=== PATIENT | female | born 1935 | race Caucasian/White ===

== ENCOUNTER → 2016-07-26 | Outpatient (CLI) | payer OTHER ==
[~2016-07-26] MED LIST: ACET-1311 PO; ASPI81TA28 PO; CALC-20 PO; CHOL100027 PO; LSN/10125 PO; MULT-506 PO; PRINZIDE 10/12.5MG PO; SIMV40TA2 PO; WARF4TAB PO; WARF5TAB90 PO
[2016-07-26 15:52] LABS: BASO % 0.5 %; BASO ABS # 0.02 K/uL (0-0.2); COMPLETE YES; HEMATOCRIT 38.2 % (37-47); IG% 0.2 %; LYMPH % 39.6 %; LYMPH ABS # 1.62 K/uL (1.2-3.4); MEAN CORPUSCULAR HEMOGLOBIN 32.4 pg (25-34); MEAN CORPUSCULAR HGB CONC 32.7 g/dl (32-36); MEAN PLATELET VOLUME 9.4 fL (7.4-10.4); MONO % 8.1 %; NEUT % 50.6 %; PLATELET COUNT 228 K/uL (130-400); RED BLOOD COUNT 3.86 M/uL (4.2-5.4); WHITE BLOOD COUNT 4.09 K/uL (4.8-10.8)
[2016-07-26 16:13] LABS: ALT/SGPT 24 U/L (12-78); AST/SGOT 29 U/L (15-37); BLOOD UREA NITROGEN 17 mg/dl (7-18); BUN/CREATININE RATIO 18.8 (10-20); CARBON DIOXIDE 31 mmol/L (21-32); CHLORIDE 105 mmol/L (98-107); CHOLESTEROL 172 mg/dl (0-200); CREATININE 0.91 mg/dl (0.60-1.20); GLUCOSE 125 mg/dl (70-99); POTASSIUM 3.7 mmol/L (3.5-5.1); SODIUM 142 mmol/L (136-145)
[2016-07-26 16:23] LABS: ALB/GLOB RATIO 1.2 (0.9-2)
[2016-07-26 16:24] LABS: ALKALINE PHOSPHATASE 65 U/L (45-117); HDL CHOLESTEROL 57 mg/dl; LDL CHOLESTEROL CALCULATED 60 mg/dl; TRIGLYCERIDES 275 mg/dl (0-150); VERY LOW DENSITY LIPOPROT CALC 55 mg/dl
== END | disposition home or self-care (01) ==
LOC: C.LAB 14:36
PROVIDERS: ATTEND Internal Medicine Geriatric Medicine
DX: I10 Essential (primary) hypertension (principal); M19.90 Unspecified osteoarthritis, unspecified site; M81.0 Age-related osteoporosis without current pathological fracture; E78.5 Hyperlipidemia, unspecified; Z79.01 Long term (current) use of anticoagulants; E55.9 Vitamin D deficiency, unspecified; F32.9 Major depressive disorder, single episode, unspecified; M54.2 Cervicalgia; S52.90XA Unspecified fracture of unspecified forearm, initial encounter for closed fracture; X58.XXXA Exposure to other specified factors, initial encounter; Z51.81 Encounter for therapeutic drug level monitoring

== ENCOUNTER 2016-09-14 18:26 | Emergency (ER) | payer OTHER ==
[~2016-09-14] VITALS: Ht 160 cm; Wt 60.8 kg
[~2016-09-14 18:26] MED LIST changes: -ASPI81TA28 PO; -LSN/10125 PO
[2016-09-14 18:31] VITALS: Ht 160 cm; Wt 60.8 kg
[2016-09-14] MEDS ORDERED: ASPI81TA28 PO (19:05)
[2016-09-14] MEDS ORDERED: LSN/10125 PO (19:05)
--- NOTE | 2016-09-14 19:07 | DIAGNOSTIC IMAGING REPORT ---
CT SCAN OF THE BRAIN WITHOUT IV CONTRAST CLINICAL HISTORY: Fall. Head injury. COMPARISON STUDY: CT of the brain dated 01/10/2015. TECHNIQUE: Unenhanced axial CT scan of the brain is performed from the vertex to the skull base. CT DOSE: 638.56 mGycm FINDINGS: Brain parenchyma: There are age-related involutional changes noting mild subcortical and periventricular microangiopathic change. There is no hemorrhage, mass effect, or evidence of acute territorial ischemia by CT criteria. Gill-white matter is preserved. No extra-axial fluid collection is seen. Ventricles, sulci, cisterns: Prominent secondary to involutional change. Intracranial vasculature: There is atherosclerotic calcification of the cavernous carotid arteries. Calvarium: The skeletal structures are osteopenic. There is no depressed calvarial fracture. Sinuses and mastoids: Trace fluid is seen within the sphenoid sinuses. The remaining visualized paranasal sinuses are clear. The mastoid air cells are well pneumatized. Orbits: The bony orbits are grossly intact. IMPRESSION: There is no hemorrhage, mass effect, or evidence of acute territorial ischemia by CT criteria. Electronically signed by: Anthony Benoit M.D. 09/14/2016 7:06 PM Dictated Date/Time: 09/14/2016 7:04 PM
--- NOTE | 2016-09-14 19:12 | EMERGENCY ROOM VISIT NOTE ---
History First contact with patient: 18:34 Chief Complaint: FALL Stated Complaint: FELL & HIT HEAD History of Present Illness The patient is a 80 year old female who presents to the Emergency Room with complaints of falling and hitting her head. The patient states that she was out gardening one hour prior to arrival when she tripped over a plastic edging she has around her flower beds and fell forward striking her face and forehead on the ground. She states when she hit her head off the ground and now she has a slight headache at the base of her skull. The patient denies any loss of consciousness, visual changes, dizziness. The patient denies any neck or back pain. The patient denies any facial pain. The patient is currently on an aspirin daily. She was taken off Coumadin 2-3 weeks ago. She had a prior pulmonary embolus which is why she was on the Coumadin but was taken off and was told she did not need it any longer. Review of Systems 6 system review was performed and was negative unless stated otherwise in history of present illness. Past Medical/Surgical History Medical Problems: (1) DVT (deep venous thrombosis) (2) Dyslipidemia (3) HTN (hypertension) (4) Hypertension (5) Osteoarthritis (6) PE (pulmonary embolism) Surgical Problems: (1) History of knee replacement, total Family History Diabetes mellitus Social History Smoking Status: Never Smoker Drug Use: none Marital Status: Housing Status: lives with significant other Current/Historical Medications Scheduled Aspirin (Aspirin Ec), 81 MG PO DAILY Calcium Carbonate-Vitamin D (Calcium 600 + D), 1 TAB PO DAILY Cholecalciferol (Vitamin D 1000 Unit), 1,000 INTER.UNIT PO DAILY Hctz/Lisinopril (Lisinopril/Hctz 10/12.5 Mg), 1 TAB PO DAILY Multivitamin (Multivitamin), 1 TAB PO DAILY Simvastatin (Zocor), 40 MG PO DAILY Scheduled PRN Acetaminophen (Tylenol), 650 MG PO Q6 PRN for Pain Physical Exam Vital Signs Date Time Temp Pulse Resp B/P (MAP) Pulse Ox O2 Delivery O2 Flow Rate FiO2 09/14/16 18:31 36.6 73 20 144/79 96 Room Air Physical Exam GENERAL: 80-year-old white female appears in no acute distress. She appears younger than stated age. MENTAL Status: Alert and oriented 3. HEAD: No gross bony deformity noted. No lacerations noted. The patient is tender to palpation over the occipital region of the skull. Remainder of head is unremarkable. EYES: PERRLA. EOMs intact. FACE: No gross bony deformity noted. No ecchymosis, edema noted. Nontender to palpation throughout. NECK: Supple, no lymphadenopathy noted. No carotid bruits noted. LUNGS: Clear auscultation without wheezes rales or rhonchi. CARDIAC: Regular rate and rhythm without murmur. Pulses is full and equal throughout. CERVICAL SPINE: Patient is nontender to palpation over the spinous processes. She is non-tender to palpation the paravertebral regions. The patient has full range of motion of the cervical spine. Muscle strength is 5 out of 5 bilateral upper extremities and symmetrical. NEURO:Cranial nerves two through 12 intact. Cerebellar function intact with [id number]. Fine motor intact with alternating finger motions. Medical Decision & Procedures ER Provider Diagnostic Interpretation: COMPARISON STUDY: CT of the brain dated 01/10/2015. TECHNIQUE: Unenhanced axial CT scan of the brain is performed from the vertex to the skull base. CT DOSE: 638.56 mGycm FINDINGS: Brain parenchyma: There are age-related involutional changes noting mild subcortical and periventricular microangiopathic change. There is no hemorrhage, mass effect, or evidence of acute territorial ischemia by CT criteria. Gill-white matter is preserved. No extra-axial fluid collection is seen. Ventricles, sulci, cisterns: Prominent secondary to involutional change. Intracranial vasculature: There is atherosclerotic calcification of the cavernous carotid arteries. Calvarium: The skeletal structures are osteopenic. There is no depressed calvarial fracture. Sinuses and mastoids: Trace fluid is seen within the sphenoid sinuses. The remaining visualized paranasal sinuses are clear. The mastoid air cells are well pneumatized. Orbits: The bony orbits are grossly intact. IMPRESSION: There is no hemorrhage, mass effect, or evidence of acute territorial ischemia by CT criteria. Electronically signed by: Anthony Benoit M.D. 09/14/2016 7:06 PM Dictated Date/Time: 09/14/2016 7:04 PM ED Course The patient was evaluated. The patient was offered pain medication but she declined. CT the head was ordered and interpreted by the radiologist as above without any acute findings.. The patient was independently evaluated by Dr. Carmen who agrees with treatment plan. The patient was discharged home in stable condition. Medical Decision Differential includes: Acute intracranial bleed, trauma, meningitis, encephalitis, increased intracranial pressure, mass or mass effect, facial or dental infection, temporal arteritis, CVA, TIA, acute hypertensive emergency, sinusitis, carbon monoxide exposure. Medication Reconcilliation Current Medication List: was personally reviewed by me Blood Pressure Screening Patient's blood pressure: Elevated blood pressure Blood pressure disposition: Elevated BP felt to be situational Impression Primary Impression: Closed head injury Departure Information Dispostion Home / Self-Care Condition GOOD Referrals Cory Vieira M.D. (PCP) Forms HOME CARE DOCUMENTATION FORM, IMPORTANT VISIT INFORMATION Patient Instructions ED Head Injury Closed, [facility] Additional Instructions Follow head injury handout instructions. Any problems return to ER immediately. Tylenol as needed for headache. Problem Qualifiers Primary Impression: Closed head injury Encounter type: initial encounter Qualified Codes: S09.90XA - Unspecified injury of head, initial encounter
[2016-09-14 19:38] VITALS: BP 144/79; PULSE 73; TEMP 36.6; O2SAT 96
== END 2016-09-14 19:40 | disposition home or self-care (01) ==
LOC: C.EDB 18:27
DX: S09.90XA Unspecified injury of head, initial encounter (principal); W01.198A Fall on same level from slipping, tripping and stumbling with subsequent striking against other object, initial encounter; Y93.H2 Activity, gardening and landscaping; Y99.8 Other external cause status; I10 Essential (primary) hypertension; E78.5 Hyperlipidemia, unspecified; Z86.711 Personal history of pulmonary embolism; Z86.718 Personal history of other venous thrombosis and embolism; M19.90 Unspecified osteoarthritis, unspecified site; Z96.653 Presence of artificial knee joint, bilateral; Z83.3 Family history of diabetes mellitus; Z79.82 Long term (current) use of aspirin; Z79.899 Other long term (current) drug therapy

== ENCOUNTER → 2017-01-25 | Outpatient (CLI) | payer OTHER ==
[~2017-01-25] MED LIST changes: +ASPI81TA28 PO; +LSN/10125 PO; -PRINZIDE 10/12.5MG PO; -WARF4TAB PO; -WARF5TAB90 PO
[2017-01-25 17:25] LABS: BASO % 0.5 %; BASO ABS # 0.02 K/uL (0-0.2); COMPLETE YES; EOS % 2.5 %; HEMATOCRIT 39.1 % (37-47); IG% 0.2 %; LYMPH % 38.1 %; LYMPH ABS # 1.65 K/uL (1.2-3.4); MEAN CELL VOLUME 97.8 fL (80-100); MEAN CORPUSCULAR HEMOGLOBIN 31.5 pg (25-34); MEAN CORPUSCULAR HGB CONC 32.2 g/dl (32-36); MONO % 11.5 %; NEUT % 47.2 %; PLATELET COUNT 229 K/uL (130-400); WHITE BLOOD COUNT 4.33 K/uL (4.8-10.8)
[2017-01-25 17:53] LABS: BLOOD UREA NITROGEN 16 mg/dl (7-18); BUN/CREATININE RATIO 18.8 (10-20); CALCIUM 9.2 mg/dl (8.5-10.1); CARBON DIOXIDE 29 mmol/L (21-32); CHLORIDE 106 mmol/L (98-107); CREATININE 0.86 mg/dl (0.60-1.20); GLUCOSE 90 mg/dl (70-99); POTASSIUM 3.9 mmol/L (3.5-5.1); SODIUM 138 mmol/L (136-145)
== END | disposition home or self-care (01) ==
LOC: C.LABPBG 12:05
PROVIDERS: ATTEND Internal Medicine Geriatric Medicine
DX: I10 Essential (primary) hypertension (principal); M19.90 Unspecified osteoarthritis, unspecified site; M81.0 Age-related osteoporosis without current pathological fracture; E55.9 Vitamin D deficiency, unspecified